=== PATIENT | male | born 1980 | race Hispanic/Latino ===

== ENCOUNTER → 2017-11-18 | Outpatient (CLI) | payer OTHER ==
[~2017-11-18] MED LIST: AMLODIPINE BESY10 MG PO; HYDROCHLOROTHIA25 MG PO; LISINOPRIL PO
[2017-11-18 08:45] LABS: INR 1.03; PARTIAL THROMBOPLASTIN TIME 26.7 seconds (23.8-35.5); PROTHROMBIN TIME 12.7 seconds (11.9-14.5)
--- NOTE | 2017-11-18 13:18 | Diagnostic Imaging Report ---
PROCEDURE:IR BIOPSY LIVER COMPARISON:None. Preprocedure diagnosis: Elevated liver function tests Post procedure diagnosis: Elevated liver function test Sedation/anesthesia: Versed 2 mg intravenous, fentanyl 100 mcg intravenous. The patient's heart rate and pulse oximetry were continuously monitored by the interventional radiology nurse. The pressure was monitored at 5 minute intervals. Blood products administered: None Specimens: Core biopsy specimens of the liver x3 Implants/grafts: None Complications: No immediate Condition at completion of procedure: Stable Disposition: Radiology recovery area. BLOOD LOSS: Minimal FINDINGS: After informed consent was obtained, the patient was placed in the right anterior oblique position. A safe entry route into the right lobe of the liver was identified by ultrasound and the overlying skin was prepped and draped in standard sterile fashion. Lidocaine 1% was delivered for local anesthesia. Under continuous sonographic guidance, a 16 gauge needle guide was advanced into the right lobe of the liver. Subsequently, a total of 3 biopsy specimens were obtained using an 18 gauge, 2 cm throw core biopsy apparatus. The guide needle was removed concomitant with injection of a small amount of Gelfoam slurry along the liver capsule and in the subcutaneous tract for augmentation of hemostasis. Post-procedure sonographic images of the liver showed no perihepatic hematoma. A sterile dressing was applied. The patient tolerated the procedure well without immediate complication. CONCLUSION: Uncomplicated ultrasound-guided random liver biopsy. Samples sent to Pathology for analysis. Dictated by: Eric Olvera M.D. on 11/18/2017 at 13:19 Electronically approved by: Eric Olvera M.D. on 11/18/2017 at 13:19
--- NOTE | 2017-11-18 13:19 | Diagnostic Imaging Report ---
PROCEDURE:ULTRASOUND GUIDANCE FOR PROCEDURE COMPARISON:None. INDICATIONS: liver random bx PROCEDURE: See conclusion CONCLUSION: For full dictated report, refer to "BIOPSY LIVER" performed same day. Dictated by: Eric Olvera M.D. on 11/18/2017 at 13:20 Electronically approved by: Eric Olvera M.D. on 11/18/2017 at 13:20
== END ==
LOC: US 07:36
PROVIDERS: ATTEND Internal Medicine Gastroenterology
DX: K76.0 Fatty (change of) liver, not elsewhere classified (principal)
CPT/HCPCS: 36415; 47000; 76942; 85049; 85610; 85730; 88307